=== PATIENT | female | born 1960 | race Caucasian/White ===

== ENCOUNTER 2019-02-21 15:34 | Emergency (ER) | payer OTHER ==
[~2019-02-21] VITALS: Ht 162.6 cm; Wt 73.2 kg
[2019-02-21 16:24] VITALS: BP 183/90
[2019-02-21] MEDS ORDERED: OMEP20TC12 PO (16:33)
[2019-02-21] MEDS ORDERED: BENA40TA9 PO (16:33)
[2019-02-21] MEDS ORDERED: SYN.075 PO (16:34)
[2019-02-21] MEDS ORDERED: AMLO2.5T2 PO (16:35)
[2019-02-21] MEDS ORDERED: AMLO10TA4 PO (16:35)
[2019-02-21] MEDS ORDERED: CLOP75TA26 PO (16:38)
[2019-02-21] MEDS ORDERED: [UNRECOGNIZED DRUG - CODE] PO (16:38)
[2019-02-21] MEDS ORDERED: METO50TE2 PO (16:39)
--- NOTE | 2019-02-21 16:41 | NUR ---
TO CHAIR Elizabeth
[2019-02-21] MEDS ORDERED: cefTRIAXone 1,000 MG in LIDOCAINE MPF 1% - 5 mL VIAL 2.1 ML IM ONE (16:50)
--- NOTE | 2019-02-21 17:00 | NUR ---
PT BIB SELF FOR BURNING URINATION, BLADDER PAIN, AND INCREASED URINARY FREQUENCY X 3 DAYS. BLOOD IN URINE X YESTERDAY. TOOK AZO TODAY. PT SITTING IN CHAIR, AWAKE, CALM. HX: BLEEDING ULCER, HTN, CVA, THROAT CANCER, TRACHEOSTOMY RX: REFER TO LIST
[2019-02-21 17:26] VITALS: BP 178/88
--- NOTE | 2019-02-21 17:26 | NUR ---
Patient discharged with v/s stable. Written and verbal after care instructions given and explained. Patient alert, oriented and verbalized understanding of instructions. Ambulatory with steady gait. All questions addressed prior to discharge. ID band removed. Patient advised to follow up with PMD. Rx of PYRIDIUM, KEFLEX given. Patient educated on indication of medication including possible reaction and side effects. Opportunity to ask questions provided and answered.
[2019-02-21 17:57] LABS: APPEARANCE,URINE CLOUDY (CLEAR); BILIRUBIN,URINE 2+ (NEGATIVE); BLOOD, URINE 3+ (NEGATIVE); COLOR,URINE RED (YELLOW); LEUKOCYTE ESTERASE ,URINE 2+ (NEGATIVE); NITRITE, URINE POSITIVE (NEGATIVE); PH,URINE 6.5 (5.0-9.0); UGLUCOSE 1+ (NEGATIVE)
[2019-02-21 18:03] LABS: RBC,URINE TOO NUMEROUS TO COUN /HPF (0-5); WBC,URINE TOO MANY TO COUNT /HPF (0-5)
== END 2019-02-21 17:26 | disposition home or self-care (01) ==
LOC: MED 15:34
DX: N39.0 Urinary tract infection, site not specified (principal); I10 Essential (primary) hypertension; Z85.818 Personal history of malignant neoplasm of other sites of lip, oral cavity, and pharynx; Z86.73 Personal history of transient ischemic attack (TIA), and cerebral infarction without residual deficits; Z98.890 Other specified postprocedural states; Z88.5 Allergy status to narcotic agent; Z88.6 Allergy status to analgesic agent; Z88.8 Allergy status to other drugs, medicaments and biological substances
CPT/HCPCS: 81001; 87086; 87186; 96372; 99283; J0696; J2001

== ENCOUNTER 2019-05-02 03:41 | Emergency (ER) | payer OTHER ==
[~2019-05-02] VITALS: Ht 162.6 cm; Wt 71.7 kg
[~2019-05-02 03:41] MED LIST: AMLO2.5T2 PO; BENA40TA9 PO; CLOP75TA26 PO; METO50TE2 PO; OMEP20TC12 PO; SYN.075 PO; [UNRECOGNIZED DRUG - CODE] PO
[2019-05-02 03:43] VITALS: BP 169/102
--- NOTE | 2019-05-02 03:44 | NUR ---
PT AMBULATED TO ER BED 4
--- NOTE | 2019-05-02 03:54 | NUR ---
58 Y/O F PRESENTS TO ER C/O DIFFICULTY BREATHING X 2 DAYS AGO. PT WAS SEEN AT [facility] FOR SAME ISSUE AND WAS GIVEN BREATHING TREATMENTS, THAT PROVIDED RELIEF. PT RESPIRATIONS ARE EVEN AND UNLABORED. O2 SATURATION BETWEEN 94-97% ON RA. BREATHE SOUNDS BILATERALLY CLEAR. PT HAS DRY COUGH. PT HAS THROAT STOMA AND USES VOICE BOX TO SPEAK. PER PT "I FEEL LIKE I HAVE MUCOUS CLOGGED." SAFETY MEASURE IN PLACE. ERMD MADE AWARE OF PT STATUS. ALLERGIES: ASPIRIN, CODEINE, DIAZEPAM, ERYTHROMYCIN, AND CODEINE MED HX: STROKE, THROAT CANCER, HTN, HIGH CHOLESTEROL, HYPOTHYROIDISM, AND OSTEOPOROSIS
--- NOTE | 2019-05-02 04:35 | NUR ---
RT AT BEDSIDE
--- NOTE | 2019-05-02 04:40 | NUR ---
PLACED PATIENT ONTO TRACH COLLAR COOL AEROSOL FOR MOISTURE PATIENTS COMPLAINT IS DIFFICULTY CLEARING SECRETIONS. PATIENT HAS AN OPEN STOMA FOR 13 YEARS. PATIENT STATED THAT SHE CAN SUCTION THROUGH STOMA AFTER ABOUT 20 MINUTES OF AEROSOL VIA TRACH COLLAR.
--- NOTE | 2019-05-02 05:00 | NUR ---
PT STATES SHE FEELS BETTER, AND EASE OF BREATHING AFTER SUCTIONING. PINK AND FROTHY 300ML OUTPUT
[2019-05-02 05:42] VITALS: BP 137/92
--- NOTE | 2019-05-02 05:42 | NUR ---
Patient discharged with v/s stable. Written and verbal after care instructions given and explained. Patient verbalized understanding. Ambulatory with steady gait. All questions addressed prior to discharge. Advised to follow up with PMD.
== END 2019-05-02 05:42 | disposition home or self-care (01) ==
LOC: MED 03:41
DX: Z43.0 Encounter for attention to tracheostomy (principal); I10 Essential (primary) hypertension; Z79.899 Other long term (current) drug therapy; Z79.01 Long term (current) use of anticoagulants; Z88.5 Allergy status to narcotic agent; Z88.1 Allergy status to other antibiotic agents; Z88.8 Allergy status to other drugs, medicaments and biological substances; Z88.6 Allergy status to analgesic agent
CPT/HCPCS: 94640; 99283

== ENCOUNTER 2019-06-01 07:36 | Emergency (ER) | payer OTHER ==
[~2019-06-01] VITALS: Ht 160 cm; Wt 69.6 kg
[2019-06-01 07:41] VITALS: BP 182/109
--- NOTE | 2019-06-01 07:46 | NUR ---
PT TAKEN TO BED 6.
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
--- NOTE | 2019-06-01 07:57 | NUR ---
Patient being evaluated by DR LOYOLA at bedside.
[2019-06-01 08:11] VITALS: BP 183/114
--- NOTE | 2019-06-01 08:11 | NUR ---
Patient discharged with BP 183/114, DENIES HEADACHE OR DIZZINES AT THIS TIME, MD MADE AWARE. PT STATED" I HAVE MY MEDS AT MY CAR & WILL TAKE IT AFTER DISCHRGE". Written and verbal after care instructions given and explained. Patient alert, oriented and verbalized understanding of instructions. Ambulatory with steady gait. All questions addressed prior to discharge. ID band removed. Patient advised to follow up with PMD. Rx of MACROBID & PHENAZOPYRIDINE given. Patient educated on indication of medication including possible reaction and side effects. Opportunity to ask questions provided and answered.
== END 2019-06-01 08:11 | disposition home or self-care (01) ==
LOC: MED 07:36
DX: N39.0 Urinary tract infection, site not specified (principal); K21.9 Gastro-esophageal reflux disease without esophagitis; Z86.73 Personal history of transient ischemic attack (TIA), and cerebral infarction without residual deficits; Z85.89 Personal history of malignant neoplasm of other organs and systems; Z79.899 Other long term (current) drug therapy; Z88.5 Allergy status to narcotic agent; Z88.6 Allergy status to analgesic agent; Z88.8 Allergy status to other drugs, medicaments and biological substances
CPT/HCPCS: 81002; 99283

== ENCOUNTER 2022-04-22 17:10 | Inpatient (IN) | payer OTHER ==
[~2022-04-22] VITALS: Ht 162.6 cm; Wt 61.7 kg
[~2022-04-22 17:10] MED LIST changes: -BENA40TA9 PO; +BENA40TA97 PO; +OMEP-278 PO; -OMEP20TC12 PO
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
[2022-04-22 17:22] VITALS: BP 189/109
--- NOTE | 2022-04-22 17:38 | NUR ---
PT STATES WAS TAKING HER MEDICATION LAST NIGHT AND FEELS LIKE A PILL IS STUCK IN HER THROAT, SWALLOWING AND TOLERATING SECRETIONS.
[2022-04-22 18:13] LABS: BASOPHILS # (AUTO) 0.1 K/uL (0.00-0.22); BASOPHILS % (AUTO) 1.2 % (0.0-2.0); EOSINOPHILS # (AUTO) 0.2 K/uL (0-0.4); EOSINOPHILS % (AUTO) 2.6 % (0.0-4.0); HEMATOCRIT 34.7 % (36-48); HEMOGLOBIN 11.4 g/dL (12.0-16.0); LYMPHOCYTES % (AUTO) 23.2 % (20.5-51.1); MEAN CORPUSCULAR HEMOGLOBIN 26 pg (27-31); MEAN CORPUSCULAR HGB CONC 33 g/dL (33-37); MEAN CORPUSCULAR VOLUME 77.9 fL (80-94); MONOCYTES # (AUTO) 0.8 K/uL (0.8-1.0); MONOCYTES % (AUTO) 9.1 % (1.7-9.3); NEUTROPHILS # (AUTO) 5.5 K/uL (1.8-7.7); NEUTROPHILS % (AUTO) 63.9 % (42.2-75.2); PLATELET COUNT (AUTO) 407 K/uL (140-450); RED BLOOD CELL COUNT(AUTO) 4.46 MIL/uL (4.20-5.40); RED CELL DISTRIBUTION WIDTH 16.8 % (11.6-13.7); WHITE BLOOD COUNT (AUTO) 8.6 K/uL (4.8-10.8)
[2022-04-22 18:27] LABS: ALBUMIN 3.1 g/dL (3.4-5.0); ANION GAP 11.8 (8-16); CARBON DIOXIDE 29.3 mmol/L (21-32); CREATININE 0.8 mg/dL (0.6-1.3); POTASSIUM 4.1 mmol/L (3.5-5.1); TOTAL BILIRUBIN 0.2 mg/dL (0.0-1.0)
--- NOTE | 2022-04-22 19:42 | NUR ---
CT called and informed patient is ready for CTA.
--- NOTE | 2022-04-22 20:00 | NUR ---
Patient back from CT.
[2022-04-22] MEDS ORDERED: DEXT 5% / NACL 0.9% 500 ML IV ONE (21:30)
--- NOTE | 2022-04-22 23:31 | NUR ---
Patient will be admitted to care of Telemetry nurse Sean SIMS. Admited to Telemetry. Will go to room 105A. Belongings list completed. Report to Telemetry nurse Sean SIMS. Telemetry nurse Sean SMIS verbalized understanding of report, no further questions. Patient A/Ox4, on monitor, no s/s of distress, skin intact except for trach tube, LAC 20 G IV intact and infusing medication. All transfer documents given to Telemetry nurse Sean SMIS.
[2022-04-23 00:08] VITALS: BP 128/80
--- NOTE | 2022-04-23 00:08 | NUR ---
RECEIVED PT FROM ER / WHEELCHAIR ,WALKS TO BED , STEADY GAIT , NID , O2 SAT WNL , IV SITE INTACT AND PATENT , ADMISSION ASSESSMENT - DONE , REMINDS NPO , CALL LIGHT WITHIN REACH , PLAN OF CARE DISCUSSED AND VERBALIZES UNDERSTANDING , WILL CONT. TO MONITOR .
[2022-04-23 04:00] VITALS: BP 124/66
--- NOTE | 2022-04-23 04:00 | NUR ---
ROUNDS , NO S/SX OF ACUTE DISTRESS NOTED , CALL LIGHT WITHIN REACH .
--- NOTE | 2022-04-23 06:00 | NUR ---
ROUNDS , NO COMPLAIN MADE , CALL LIGHT WITHIN REACH .
--- NOTE | 2022-04-23 07:45 | NUR ---
ENDORSED - PT - STABLE .
[2022-04-23 08:00] VITALS: BP 157/93
[2022-04-23] MEDS ORDERED: DOCUSATE SODIUM 100 MG GELCAP PO PRN (08:00)
[2022-04-23] MEDS ORDERED: POTASSIUM CHLORIDE 10 MEQ TABER PO PRN (08:00)
[2022-04-23] MEDS ORDERED: ZOLPIDEM 5 MG TAB PO PRN (08:00)
[2022-04-23] MEDS ORDERED: ONDANSETRON 4 MG/2 ML VIAL IM/IVP PRN (08:00)
[2022-04-23] MEDS ORDERED: ACETAMINOPHEN 325 MG TAB PO PRN (08:00)
[2022-04-23] MEDS ORDERED: DEXT 5% /NACL 0.9% 1,000 ML IV SCH (08:00)
[2022-04-23] MEDS ORDERED: guaiFENesin DM 200/20 MG-10 ML 10 ML UDC PO PRN (08:00)
[2022-04-23] MEDS ORDERED: hydrALAZINE 20 MG/ML VIAL IVP PRN (08:10)
[2022-04-23 08:33] LABS: BASOPHILS # (AUTO) 0.1 K/uL (0.00-0.22); BASOPHILS % (AUTO) 0.8 % (0.0-2.0); EOSINOPHILS # (AUTO) 0.2 K/uL (0-0.4); EOSINOPHILS % (AUTO) 2.5 % (0.0-4.0); HEMOGLOBIN 11.4 g/dL (12.0-16.0); LYMPHOCYTES # (AUTO) 1.3 K/uL (2.5-16.5); MEAN CORPUSCULAR HEMOGLOBIN 26 pg (27-31); MEAN CORPUSCULAR HGB CONC 33 g/dL (33-37); MEAN CORPUSCULAR VOLUME 78.9 fL (80-94); MONOCYTES # (AUTO) 0.5 K/uL (0.8-1.0); MONOCYTES % (AUTO) 7.4 % (1.7-9.3); NEUTROPHILS % (AUTO) 71.3 % (42.2-75.2); PLATELET COUNT (AUTO) 366 K/uL (140-450); RED BLOOD CELL COUNT(AUTO) 4.44 MIL/uL (4.20-5.40); RED CELL DISTRIBUTION WIDTH 16.7 % (11.6-13.7); WHITE BLOOD COUNT (AUTO) 7.1 K/uL (4.8-10.8)
[2022-04-23] MEDS ORDERED: METOPROLOL SUCCINATE 50 MG TABER PO SCH (09:00)
[2022-04-23] MEDS ORDERED: NON-FORMULARY ITEM (Omeprazole (Omeprazole) 40 MG) PO SCH (09:00)
[2022-04-23] MEDS ORDERED: amLODIPine 5 MG TAB PO SCH (09:00)
[2022-04-23] MEDS ORDERED: BENAZEPRIL HCL PO SCH (09:00)
[2022-04-23] MEDS ORDERED: LEVOTHYROXINE 0.075 MG TAB PO SCH (09:00)
[2022-04-23] MEDS ORDERED: PANTOPRAZOLE 40 MG TABEC PO SCH (09:00)
[2022-04-23] MEDS ORDERED: CLOPIDOGREL 75 MG TAB PO SCH (09:00)
[2022-04-23 09:07] LABS: ANION GAP 10.9 (8-16); CARBON DIOXIDE 28.3 mmol/L (21-32); CREATININE 0.7 mg/dL (0.6-1.3); MAGNESIUM 2.2 mg/dL (1.8-2.4); PHOSPHORUS 3.2 mg/dL (2.5-4.9); POTASSIUM 4.2 mmol/L (3.5-5.1)
[2022-04-23] MEDS ORDERED: MIDAZOLAM 2 MG/2 ML VIAL IVP ONE (11:30)
[2022-04-23] MEDS ORDERED: fentaNYL citrate 0.05 MG/ML VIAL IVP ONE (11:30)
[2022-04-23 12:00] VITALS: BP 101/64
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
[2022-04-23] MEDS ORDERED: MIDAZOLAM 2 MG/2 ML VIAL ONE (12:14)
[2022-04-23] MEDS: SUCRALFATE 1 GM TAB PO SCH ×2 (13:00→17:00)
--- NOTE | 2022-04-23 13:10 | NUR ---
PATIENT HAS BEEN SCREENED AND CATEGORIZED LOW NUTRITION RISK. PATIENT WILL BE SEEN WITHIN 7 DAYS OF ADMISSION. 04/29/[address]
[2022-04-23 16:00] VITALS: BP 132/73
[2022-04-23 17:39] VITALS: BP 132/73
--- NOTE | 2022-04-23 18:25 | NUR ---
DISCHARGE INSTRUCTIONS AND PLAN OF CARE DISCUSSED WITH PATIENT. PATIENT VERBALIZED UNDERSTANDING. IV DISCONTINUED. PATIENT DISCHARGED HOME. Victor Manuel AQUINO RN.
[2022-04-24] MEDS ORDERED: BENAZEPRIL 20 MG TAB PO SCH (09:00)
[2022-04-27] MEDS ORDERED: SUCR1TAB56 PO (20:32)
== END 2022-04-23 18:35 | disposition home or self-care (01) | DRG 394 ==
LOC: MED 17:10 → MTU 21:30
PROVIDERS: ADMIT Student in an Organized Health Care Education/Training Program; ATTEND Student in an Organized Health Care Education/Training Program
PROC: 0D718ZZ Dilation of Upper Esophagus, Via Natural or Artificial Opening Endoscopic (ICD-10-PCS; principal; 2022-04-23 10:30)
DX: T18.108A Unspecified foreign body in esophagus causing other injury, initial encounter (principal); E44.1 Mild protein-calorie malnutrition; Z93.0 Tracheostomy status; I10 Essential (primary) hypertension; M81.0 Age-related osteoporosis without current pathological fracture; C76.0 Malignant neoplasm of head, face and neck; E78.00 Pure hypercholesterolemia, unspecified; D50.9 Iron deficiency anemia, unspecified; E83.51 Hypocalcemia; Z20.822 Contact with and (suspected) exposure to COVID-19; X58.XXXA Exposure to other specified factors, initial encounter; R13.10 Dysphagia, unspecified; Z88.5 Allergy status to narcotic agent; Z88.8 Allergy status to other drugs, medicaments and biological substances; Z79.899 Other long term (current) drug therapy; Z80.52 Family history of malignant neoplasm of bladder; Z80.1 Family history of malignant neoplasm of trachea, bronchus and lung; Y93.89 Activity, other specified; Y99.8 Other external cause status; Y92.89 Other specified places as the place of occurrence of the external cause
CPT/HCPCS: 36415; 70491; 80048; 80053; 83735; 84100; 85025; 87081; 99285; J0360; J2250; J2405; J3010; J7030; Q9967